=== PATIENT | male | born 2000 | race African-American/Black ===

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

== ENCOUNTER 2020-11-09 21:19 | Emergency (ER) | payer SELFPAY ==
[~2020-11-09] VITALS: Ht 167.6 cm; Wt 61.0 kg
[2020-11-09] MEDS ORDERED: DIPHENHYDRAMINE 50MG CAPSULE PO ONE (22:00)
[2020-11-09] MEDS ORDERED: SODIUM CHLORIDE 0.9% 1,000 ML IV ONE (22:00)
[2020-11-09 22:51] LABS: BASOPHILS % 0.3 % (0.0-2.0); EOSINOPHILS % 5.1 % (0.0-5.0); HEMATOCRIT. 41.5 % (42.0-52.0); HEMOGLOBIN. 14.3 g/dL (14.0-18.0); MEAN CORPUSCULAR HEMOGLOBIN 31.1 pg (28.0-32.0); MEAN PLATELET VOLUME 8.2 fl (7.4-10.4); MONOCYTES % 8.1 % (2.0-8.0); NEUTROPHILS % 76.5 % (40.0-76.0); PLATELET 290 x1000/uL (130-400); RED BLOOD CELL COUNT 4.61 mill/uL (4.7-6.1); RED CELL DISTRIBUTION WIDTH 13.5 % (11.6-14.6)
[2020-11-09 22:58] LABS: CHLORIDE 103 mEq/L (98-107)
[2020-11-09 23:03] LABS: ETHANOL BLOOD < 10 mg/dL
[2020-11-09 23:39] VITALS: BP 108/57
== END 2020-11-10 01:45 | disposition left against medical advice (07) ==
LOC: ER 21:19
DX: F15.129 Other stimulant abuse with intoxication, unspecified (principal); R03.0 Elevated blood-pressure reading, without diagnosis of hypertension; R00.0 Tachycardia, unspecified; Z71.51 Drug abuse counseling and surveillance of drug abuser; Z59.0 Homelessness
CPT/HCPCS: 36415; 80053; 80320; 82962; 85025; 93005; 99284; J7030; Q0163; G0480